=== PATIENT | female | born 1965 | race Caucasian/White ===

== ENCOUNTER 2019-09-28 19:19 | Emergency (ER) | payer BC, SELFPAY ==
[2019-09-28 19:24] VITALS: BP 114/66; PULSE 99; RESP 16; TEMP 36.7; O2SAT 100
[2019-09-28] MEDS: Amoxicillin 875/Clav. 125 TAB PO (19:51)
[2019-09-28] MEDS: Povidone-Iodine Soln. 118 ML BTL (19:52)
--- NOTE | 2019-09-28 20:17 | ED.GENADUL_ITS ---
Discharge Plan Disposition Patient Disposition: HOME Condition: Stable Discharge Details Chief Complaint: AnimalBite Clinical Impression: Dog bite, Hand laceration Primary Care Provider: Lazarus Gallardo ED Provider: Julia Portillo Home Meds and New Rx's Prescriptions: New amoxicillin-pot clavulanate [Augmentin] 875-125 mg tablet 1 tab PO BID Qty: 20 RF: 0 No Action albuterol sulfate [ProAir HFA] 8.5 GM HFA aerosol inhaler 1 - 2 puff Inhalation Q4H PRN RF: 0 fluticasone propionate [Flonase Allergy Relief] 9.9 ML spray,suspension 9.9 ml NS PRN RF: 0 Discharge Instructions Instructions: Animal Bite (ED), Laceration (ED) Additional Instructions: Leave initial dressing in place for 24 hours. Then begin gently washing with soap and water once or twice daily. Apply topical antibiotic ointment to the wound. Use antibiotics as prescribed by mouth for the next 10 days to prevent infections associated with dog bites. Tylenol for discomfort if needed. Icing to the area for the next 5 days as discussed, elevating the arm for swelling is helpful. Suture removal in 10 days. Observe for any signs of infection, specifically redness, swelling, pain or drainage. Return for concerns of infection, increasing pain, limited range of motion, numbness or tingling or weakness or for any alarming concerns sooner if needed. Medical Decision Making Is a 54-year-old patient presenting for dog bite to her left hand. Patient has 2 wounds to the hand 1 a half a centimeter puncture wound and the other approximately 2 cm irregular and curvilinear. There is subcutaneous involvement. No obvious muscular injury. No obvious vascular injury. No obvious tendon injury on exam. Patient is neurologically intact to sensation throughout the hand. Has no identifiable tendon injury. Full range of motion and strength intact with normal cap refill. Patient's tetanus is unknown therefore will be updated. Dog's rabies are up-to-date. Will provide initial dose of Augmentin in the emergency room and plan for 10-day prescription for Augmentin for prophylaxis of infection. Patient agrees with this plan of care. Patient did take Tylenol prior to arrival. We did discuss an x-ray, I offered x-ray given patient does have focal pain with palpation. Patient declines she does not feel she requires x-ray at this time would prefer to observe for any persistence of pain and return if needed for imaging. Patient's wound was cleaned with Betadine prep, 3 cc of lidocaine with good effect. Irrigated extensively with sterile saline. No wound debridement required. 3 sutures to loosely close the larger laceration. Good approximation of tissue. Patient tolerated procedure without difficulty. Dressing placed. Wound management and care discussed. Signs of infection discussed. The patient was stable and requested discharge. Prior to discharge, my usual and customary return precautions were reviewed with the patient - this included follow-up instructions and reasons to return to the Emergency Department if conditions worsens, does not improve as expected, or other new concerns arise. HPI General Date/Time Provider Initiated Documentation: 09/28/19 19:40 . HPI Narrative: This is a 54-year-old patient presenting to the emergency room for a dog bite which occurred prior to arrival. Patient is left-handed and presents with a left dorsal hand dog bite. Patient's 2 dogs were fighting and she broke up the fight ultimately being bit by her own dog. Patient's dogs are up-to-date on the rabies. Patient's tetanus is unknown. Patient reports pain at the site. Denies any concern of fracture. Some pain with range of motion. No obvious weakness or limitation to range of motion of hand. Denies numbness, tingling or weakness. Has taken Tylenol prior to arrival. No other acute complaints or concerns. No other sites of injury. Patient sustained 2 wounds on the dorsal aspect of the hand near the base of the thumb 1 noted to be a half a centimeter puncture the other a 2 cm laceration. Bleeding is controlled. Related Data Home Medications Medication Instructions Recorded Confirmed albuterol sulfate [Proair Hfa] 1 - 2 puff INHALATION Q4H PRN 02/11/17 09/28/19 inhaler fluticasone propionate [Flonase 9.9 ml NS PRN 02/11/17 09/28/19 Allergy Relief] amoxicillin-pot clavulanate 1 tab PO BID #20 tab 09/28/19 [Augmentin] Previous Rx's Medication Instructions Recorded amoxicillin-pot clavulanate 1 tab PO BID #20 tab 09/28/19 [Augmentin] Allergies Allergy/AdvReac Type Severity Reaction Status Date / Time codeine AdvReac Intermediate nausea Unverified 09/28/19 19:28 General Stated Complaint: AnimalBite ITZEL: 3 Review of Systems All systems reviewed & are unremarkable except as noted in HPI and below Constitutional Constitutional: Denies chills and Denies fever(s) Musculoskeletal Musculoskeletal: Denies limited range of motion, Denies muscle cramps, Denies muscle weakness, Denies numbness, Denies radiating pain into limb and Denies tin gling Integumentary/Breasts Skin/Breast: Reports wounds Neurologic Neurologic: Denies numbness and Denies tingling [facility] Social History Smoking/Tobacco Use Status: Current every day Alcohol Intake: current Alcohol Intake frequency: a few times a week Alcohol type: wine Drug use: Never Do you feel safe at home: Yes Do you feel safe in your relationship?: Yes Exam Narrative Exam Narrative: CONST: Healthy appearing patient, in no acute distress. Well hydrated. Alert and oriented. HENMT: Head nomocephalic, normal to inspection. Atraumatic. Hearing grossly normal. EYES: General normal appearance. Alignment normal. Eyelids normal. Conjunctiva normal. NECK: Normal visual inspection. FROM. CHEST: Normal insepection of the chest. RESP: Normal respiratory effort. Speaking full sentences. No cough. No audible wheezing. No retractions. CARDIO: No JVD. MUSCULOSKELETAL: Normal Gait. FROM of all extremities. Left arm, focal: No forearm pain, wrist pain with palpation. Inspection reveals a half a centimeter puncture near the base of the thumb on the left hand, 2 cm laceration curvilinear noted over the dorsal aspect of the proximal hand. Bleeding is controlled. Mild pain with palpation of the area. Patient has no obvious ligamentous injury. No pain with flexion or extension of all digits. Sensation intact throughout hand. No weakness. Cap refill normal. No palm involvement. SKIN: Normal. Dry. No rashes. NEURO: Alert and awake. Speech clear. PSYCH: Normal affect. Cooperative. Course Vital Signs Vital signs: Vital Signs Temperature 36.7 C 09/28/19 19:24 Pulse 99 H 09/28/19 19:24 Respiratory Rate 16 09/28/19 19:24 Blood Pressure 114/66 09/28/19 19:24 Pulse Oximetry 100 09/28/19 19:24 Temperature 36.7 C 09/28/19 19:24 Temperature Source Skin 09/28/19 19:24 Pulse 99 H 09/28/19 19:24 Respiratory Rate 16 09/28/19 19:24 Respiratory Effort 09/28/19 19:28 Blood Pressure 114/66 09/28/19 19:24 Blood Pressure Position Sitting 09/28/19 19:24 Pulse Oximetry 100 09/28/19 19:24 Oxygen Delivery Method Room Air 09/28/19 19:24 Oxygen Flow Rate 0 09/28/19 19:24 Pain Level 5 09/28/19 19:24 Comment 09/28/19 19:24 Procedures Laceration Laceration 1: Site: hand Side (If applicable): left Size (cm): 2 Description: other (Curvilinear somewhat irregular) Depth: simple, single layer Local Anesthetic: Lidocaine 1% Amount of anesthesia used (mL): 3 Pre-repair: wound explored, irrigated extensively and deep structures intact Skin layer closed with: other (prolene) Size (cm): 4-0 Number of sutures: 3
--- NOTE | 2019-09-30 15:31 | NUR.NOTE ---
Nursing Note: [employer] clerk called today stating that the fax machine is not working. It was decided that I would fax the report to Dr. Boswell, [facility] for him to follow up on. It was faxed. The medical record clerk will notify Dr. Boswell about this plan. Zulema Campa.
== END 2019-09-28 20:30 | disposition home or self-care (01) ==
PROVIDERS: Emergency Provider Physician Assistant; PCP Internal Medicine
DX: S61.452A Open bite of left hand, initial encounter (principal); W54.0XXA Bitten by dog, initial encounter
CPT/HCPCS: 12001; 90471

== ENCOUNTER 2019-10-08 08:04 | Emergency (ER) | payer BC, SELFPAY ==
[2019-10-08 08:24] VITALS: BP 98/59; PULSE 82; RESP 18; TEMP 36.7; O2SAT 98
--- NOTE | 2019-10-08 08:31 | ED.GENADUL_ITS ---
Discharge Plan Disposition Patient Disposition: HOME Condition: Good Discharge Details Chief Complaint: SutureRem Clinical Impression: Encounter for removal of sutures Primary Care Provider: Lazarus Gallardo ED Provider: Xiomara Stanley Home Meds and New Rx's Prescriptions: Continued albuterol sulfate [ProAir HFA] 8.5 GM HFA aerosol inhaler 1 - 2 puff Inhalation Q4H PRN RF: 0 fluticasone propionate [Flonase Allergy Relief] 9.9 ML spray,suspension 9.9 ml NS PRN RF: 0 amoxicillin-pot clavulanate [Augmentin] 875-125 mg tablet 1 tab PO BID Qty: 20 RF: 0 Discharge Instructions Instructions: Laceration (DC) Additional Instructions: Your wound appears to be healing well. Please continue infection prevention with gloves when appropriate as discussed. If you develop fever/chills, increased pain, spreading of the redness, purulent discharge or other new/worsening symptoms seek care urgently once again. Otherwise, please follow- up with primary care as needed. Referrals: Lazarus Gallardo MD [Primary Care Provider] - Discharge Data Discharge Date/Time-TO BE ENTERED AT DEPARTURE: 10/08/19 08:52 Medical Decision Making Wound appears to be healing well with no signs of infection. Wound edges are well approximated. Sutures appropriate to come out. #3 sutures were easily removed by myself. Is tolerated well by the patient. Patient I discussed continued wound care and continued infection prevention. She is given return precautions. We will follow-up with primary care as needed. All of her questions or concerns were addressed and she is in agreement this plan. HPI General Mode of arrival: ambulatory . Date/Time Provider Initiated Documentation: 10/08/19 08:31 . Limitations to Documentation: no limitations . Information obtained by: patient and RN notes reviewed . History of Present Illness 54 year old F presents to the emergency department with the chief complaint of suture removal left hand, described as mild, with intensity rated at 1. Quality is described as aching, and is localized to the left and upper extremity. Patient reports no radiation. Patient started experiencing this day(s) and it has been constant (improving). Immobilization improves symptom(s), Movement worsens symptoms . Patient notes no other symptoms.. Related Data Home Medications Medication Instructions Recorded Confirmed albuterol sulfate [ProAir HFA] 1 - 2 puff INHALATION Q4H PRN 02/11/17 10/08/19 inhaler fluticasone propionate [Flonase 9.9 ml NS PRN 02/11/17 10/08/19 Allergy Relief] amoxicillin-pot clavulanate 1 tab PO BID #20 tab 09/28/19 10/08/19 [Augmentin] Previous Rx's Medication Instructions Recorded amoxicillin-pot clavulanate 1 tab PO BID #20 tab 09/28/19 [Augmentin] Allergies Allergy/AdvReac Type Severity Reaction Status Date / Time codeine AdvReac Intermediate nausea Unverified 10/08/19 08:28 General Stated Complaint: SutureRem ITZEL: 4 Review of Systems Constitutional Constitutional: Reports as per HPI, Denies chills, Denies fever(s) and Denies weakness Musculoskeletal Musculoskeletal: Reports as per HPI and Denies tingling Integumentary/Breasts Skin/Breast: Reports as per HPI Neurologic Neurologic: Denies sensory deficit, Denies tingling and Denies weakness [facility] Social History Smoking/Tobacco Use Status: Current every day Tobacco Type: cigarettes Alcohol Intake: current Alcohol Intake frequency: a few times a week Alcohol type: wine Drug use: Never Substance use type: does not use Do you feel safe at home: Yes Do you feel safe in your relationship?: Yes Exam Const General: cooperative, healthy appearing, comfortable, no acute distress and well developed Nutritional Appearance: average body habitus and well nourished Orientation: alert and awake Resp Effort & Inspection: normal respiratory effort, able to speak in complete sentences and no respiratory distress Cardio Rate: regular rate Rhythm: regular rhythm Skin Trauma: laceration (left hand, healing well with no erythema, warmth, drainage) Neuro General: patient alert and patient awake Cognition: normal cognition Speech: speech normal Gait: normal gait Motor: muscle tone normal throughout Extrem Left upper extremity: normal to inspection (wound healing well), full ROM, normal capillary refill and hand Details: normal capillary refill, neuromotor exam normal, neurosensory exam normal, tendon exam normal, tenderness (mild over laceration) and laceration; no ecchymosis Psych Appearance: grossly normal and well kempt Mental Status: mental status grossly normal Speech and Movement: speech and movement normal Course Vital Signs Vital signs: Vital Signs Temperature 36.7 C 10/08/19 08:24 Pulse 82 10/08/19 08:24 Respiratory Rate 18 10/08/19 08:24 Blood Pressure 98/59 L 10/08/19 08:24 Pulse Oximetry 98 10/08/19 08:24 Temperature 36.7 C 10/08/19 08:24 Temperature Source Temporal Artery Scan 10/08/19 08:24 Pulse 82 10/08/19 08:24 Respiratory Rate 18 10/08/19 08:24 Respiratory Effort Non-Labored 10/08/19 08:27 Blood Pressure 98/59 L 10/08/19 08:24 Blood Pressure Position Sitting 10/08/19 08:24 Pulse Oximetry 98 10/08/19 08:24 Oxygen Delivery Method Room Air 10/08/19 08:24 Oxygen Flow Rate 0 10/08/19 08:24 Pain Level 1 10/08/19 08:24
== END 2019-10-08 08:52 | disposition home or self-care (01) ==
PROVIDERS: Emergency Provider Physician Assistant; PCP Internal Medicine
DX: S61.452D Open bite of left hand, subsequent encounter (principal); W54.0XXD Bitten by dog, subsequent encounter; Z48.02 Encounter for removal of sutures

== ENCOUNTER 2020-06-12 16:43 | Outpatient (REF) | payer BC, SELFPAY ==
--- NOTE | 2020-06-12 16:15 | PAPFT_PTH ---
PATIENT: Yvette Conte LOC: [facility] U#:[id number] AGE/SX: 55/F ROOM: RE06/12/[address]: Katharine Flood : 1965 BED: DIS: 06/12/2020 SPEC #: [id number] RECD: 06/13/20 12:39 STATUS: SHAHRIAR REDequan #: [id number] ISAEL: 06/12/20 16:[address]: Katharine Flood DEPT: [facility] Cytology RECD BY: Rabia Triplett ENTERED: 06/13/20 12:40 SP TYPE: PAPFT OTHR DR: Lazarus Gallardo Tissues: 1 - CX/ENDOCX FOR PAP SMEARS Procedures: PAP THIN PREP/UVM Screening HPV DNA PROBE Comments: [id number]
== END 2020-06-12 17:03 ==
LOC: NCHCN 16:43
PROVIDERS: PCP Internal Medicine; Visit Provider Nurse Practitioner Family
DX: Z00.00 Encounter for general adult medical examination without abnormal findings (principal); Z12.4 Encounter for screening for malignant neoplasm of cervix; R87.610 Atypical squamous cells of undetermined significance on cytologic smear of cervix (ASC-US)
CPT/HCPCS: 88142; 87624

== ENCOUNTER 2020-07-09 01:28 | Outpatient (CLI) | payer BC, SELFPAY ==
--- NOTE | 2020-07-09 | DI.MAMMO_ITS ---
EXAM: MAMMO SCREENING CLINICAL HISTORY: SCREENING, Z12.39 TECHNIQUE: Mammograms were interpreted according to the usual protocol including computer analysis w [employer] CAD system, tomosynthesis and C-view imaging. COMPARISON: 2002 through 2005 from [facility] FINDINGS: The breasts are composed of heterogeneously dense fibroglandular densities, Breast Density category C . No suspicious masses or suspicious microcalcifications are seen. Are several circumscribed nodules i n the right breast which appear unchanged 2006. There few scattered coarse calcifications. No skin thickening or abnormal axillary lymph nodes are seen. There has been no significant change from prior exams other than interval decrease in breast density. . IMPRESSION: BI-RADS Cat 2 - Benign Findings. Yearly screening mammography is recommended. Breast Density Category C, heterogeneously Dense. The mammogram demonstrates the patient's breast tissue is dense. Dense breast tissue is very common a nd is not abnormal but dense breast tissue can make it harder to find cancer on a mammogram. Also, de nse breast tissue may increase breast cancer risk. This information about the result of the mammogram report was provided to the patient to raise their awareness. Use this report when you speak with the patient about their risks for breast cancer, which includes their family history. At that time, you may recommend additional screening tests (Ultrasound or MRI) as they might be useful based on their r isk. A negative radiographic report should not delay biopsy if a dominant or clinically suspicious mass is present. Up to ten percent of cancers are not identified on mammography. A negative report may reinforce clinical impression. Adenosis and dense breasts may obscure an underlying neoplasm. False positive reports average 6 to 10%.
== END 2020-07-09 01:29 ==
LOC: DI 01:28
PROVIDERS: PCP Internal Medicine; Visit Provider Nurse Practitioner Family
DX: Z12.31 Encounter for screening mammogram for malignant neoplasm of breast (principal)
CPT/HCPCS: 77063; 77067

== ENCOUNTER 2020-12-10 08:24 | Emergency (ER) | payer BC, SELFPAY ==
[2020-12-10] VITALS (31 sets, daily range): BP systolic 95–152; BP diastolic 51–93; PULSE 77–106; RESP 11–31; TEMP 36–36.7; O2SAT 89–100
--- NOTE | 2020-12-10 08:25 | ED.GENADUL_ITS ---
Discharge Plan Disposition Patient Disposition: HOME Condition: Stable Discharge Details Clinical Impression: Ureterolithiasis Primary Care Provider: Lazarus Gallardo ED Provider: Cecile Mercado Home Meds and New Rx's Prescriptions: New tamsulosin [Flomax] 0.4 mg capsule 0.4 mg PO DAILY Qty: 10 RF: 0 oxycodone 5 mg tablet 5 mg PO Q6H PRN (Reason: pain) Qty: 7 RF: 0 Continued albuterol sulfate [ProAir HFA] 8.5 GM HFA aerosol inhaler 1 - 2 puff Inhalation Q4H PRN RF: 0 fluticasone propionate [Flonase Allergy Relief] 9.9 ML spray,suspension 9.9 ml NS PRN RF: 0 amoxicillin-pot clavulanate [Augmentin] 875-125 mg tablet 1 tab PO BID Qty: 20 RF: 0 Discharge Instructions Instructions: Kidney Stones (ED) Additional Instructions: Drink plenty of fluids and get plenty of rest. Alternate tylenol and motrin as needed and directed for pain. Take the oxycodone for pain not relieved with Tylenol or Motrin. Take the Zofran as needed and directed for nausea and vomiting. Take the Flomax daily as directed. Your prescriptions have been sent electronically to your pharmacy. Call the pharmacy to make sure your prescriptions are ready before pickup. Take the prescription as directed. Call the urologist today to schedule a follow up appointment for re-evaluation. Return immediately to the emergency department if you develop any worsening or new concerning symptoms such as fever, persistent vomiting, worsening pain or inability to urinate. Referrals: Darion Burger MD [ [facility]AFF PHYSICIAN] - Discharge Data Discharge Physician: Cecile Mercado Medical Decision Making 08 -- 55-year-old female with a history of section in the past presents with left lower quadrant abdominal pain and vomiting since last night. Patient appears significantly uncomfortable, crying and writhing in pain and holding her left lower quadrant. Blood pressure 98/62. Heart rate 106. Blood pressure 98/62. Her abdomen is soft and tender in the left lower quadrant. Difficult to obtain full history and exam due to patient's high level of discomfort. We will place an IV, obtain screening labs, urinalysis and plan for CT abdomen pelvis. We will give a dose of morphine and Zofran and reassess. 0900 -- Pt complaining continued pain before able to give meds. BP 127/77. She appears more comfortable but still complaining of pain prior to going to radiology. We will give a dose of fentanyl. 0920 -- Pt still c/o pain and nausea after return from radiology. She is moaning and writhing in pain. Blood pressure 119/69. Heart rate 80s. We will give a dose of Dilaudid IV and Phenergan IV. 0935 -- CT notes 4mm kidney stone with mild to moderate hydronephrosis. Will give a dose of Toradol. 1000 --patient appears much more comfortable and states her pain is improved. She has not yet given a urine sample. Will give another liter of fluid, plan for recheck of a lactate and urinalysis. 1130 --urinalysis notes blood but no evidence of infection. Repeat lactate normalized at 1.2. Patient reassessed and she feels much better. Nursing noted patient potentially passed a stone in her urine sample. Inspection of urine cup noted 3 mm white object but unclear if this is a stone. This was sent for a kidney stone analysis. Patient given dose of Flomax here. She feels good to go home. Prescription sent electronically to her pharmacy. She was placed on urology follow-up list. Medical Records Medical records reviewed: Yes I reviewed the patient's medical records. Imaging Data Radiologic Study: Radiologist's impression: CT ABDOMEN PELVIS CTA CLINICAL HISTORY: severe abdominal pain, r/o ischemia, AAA. TECHNIQUE: Imaging Protocol: Axial CT angiography was performed with multi- slice acquisition and multi-planar and/or 3D reconstructions. CONTRAST MATERIAL: Intravenous: Omnipaque 350 Contrast volume:100 mL Oral: No COMPARISON: No exams were available for comparison FINDINGS: ABDOMEN AND PELVIS: Abdomen: Celiac axis/mesenteric arteries: No evidence of occlusion or significant stenosis. Renal Arteries: No evidence of occlusion or significant stenosis. There is a single renal artery perfusing each kidney. Aorta: No evidence of occlusion or significant stenosis. No aneurysm or dissection. Mild atherosclerosis. Pelvis: Iliac Arteries: No evidence of occlusion or significant stenosis. Common Femoral Arteries: No evidence of occlusion or significant stenosis. ABDOMEN: Lung bases: There is scarring or atelectasis in the left lingula and right middle lobe. Liver: Normal density. No measurable mass. Portal, Superior Mesenteric, and Splenic Veins: Unremarkable. Gallbladder and Biliary Tract: No radiodense calculus or dilation. Pancreas: Normal density, no abnormal calcifications or inflammatory process. Spleen: Normal. Adrenals: No masses seen. Kidneys: Normal size, contour and axis. There is a 4 mm stone at the left UVJ causing lkrd-[id number]-[id number] hydronephrosis. No masses seen. Bowel: No obstruction or bowel wall thickening. There is a normal retrocecal appendix. Peritoneal Cavity: No ascites, collection or mesenteric inflammatory response. No free air. Lymph Nodes: Within normal limits. Bones: Unremarkable. Soft Tissues: Unremarkable. PELVIS: Bladder: Symmetric distention, no gross wall thickening. Reproductive Organs: Unremarkable as visualized. Lymph Nodes: Within normal limits. Bones: Within normal limits. IMPRESSION: 1. Normal CT Angiogram of the chest, abdomen and pelvis. 2. 4 mm left UVJ stone causing eakw-sr-dyzicxob hydronephrosis. 3. Results of this exam have been verbally communicated with provider. Lab Data Lab results reviewed: Yes I reviewed the patient's lab results. Labs: Laboratory Tests Range/Units 12/10/20 12/10/20 12/10/20 08:35 08:35 08:35 WBC (4.4-10.8) 10^3/uL 9.71 RBC (3.93-5.22) 10^6/uL 5.11 Hgb (11.2-15.7) g/dL 15.7 Hct (36.0-46.0) % 46.8 H MCV (80-95) fL 91.6 MCH (27.0-33.0) pg 30.7 MCHC (32.0-36.0) % 33.5 RDW (11.7-14.6) % 12.7 Plt Count (130-400) 10^3/uL 318 MPV (8.0-11.0) fL 9.6 Immature Gran % 0.5 Neutrophils % 74.7 Lymphocytes % 19.2 Monocytes % 4.8 Eosinophils % 0.4 Basophils % 0.4 Nucleated RBC % % 0 Absolute Neutrophils (1.2-6.7) 10^3/uL 7.25 H Absolute Lymphocytes (1.2-3.4) 10^3/uL 1.86 Absolute Monocytes (0.1-0.8) 10^3/uL 0.47 Absolute Eosinophils (0.0-0.7) 10^3/uL 0.04 Absolute Basophils (0.0-0.2) 10^3/uL 0.04 VBG Lactate (0.6-1.4) mmol/L 3.2 H* Sodium (136-145) mmol/L 140 Potassium (3.5-5.1) mmol/L 3.7 Chloride (98-107) mmol/L 104 Carbon Dioxide (21.0-32.0) mmol/L 22.8 Anion Gap (3-11) mmol/L 13.2 H BUN (7-18) mg/dL 11 Creatinine (0.55-1.02) mg/dL 0.9 Estimated GFR/1.73 m2 (mL/min/1.73m2) >= 60.00 Glucose (74-106) mg/dL 145 H Calcium (8.5-10.1) mg/dL 9.4 Total Bilirubin (0.2-1.0) mg/dL 0.4 AST (15-37) U/L 16 ALT (14-59) U/L 26 Alkaline Phosphatase (46-116) U/L 95 Total Protein (6.4-8.2) g/dL 7.6 Albumin (3.4-5.0) g/dL 3.9 Lipase (73-393) U/L 130 Urine Color (Yellow) Urine Clarity (Clear) Urine pH (5-8) Ur Specific [place] (1.005-1.025) Urine Protein (Negative) mg/dL Urine Ketones (Negative) mg/dL Urine Blood (Negative) Urine Nitrite (Negative) Urine Bilirubin (Negative) Urine Urobilinogen (Up TO 0.2) EU/dL Ur Leukocyte Esterase (Negative) Urine RBC (0-2) HPF Urine WBC (0-5) HPF Ur Epithelial Cells (Negative) HPF Urine Crystals (Negative) HPF Urine Bacteria (Negative) HPF Urine Casts (Negative) LPF Urine Mucus (Negative) Urine Other (Negative) Ur Culture Indicated? Urine Glucose (Negative) mg/dL Range/Units 12/10/20 12/10/20 10:55 11:00 WBC (4.4-10.8) 10^3/uL RBC (3.93-5.22) 10^6/uL Hgb (11.2-15.7) g/dL Hct (36.0-46.0) % MCV (80-95) fL MCH (27.0-33.0) pg MCHC (32.0-36.0) % RDW (11.7-14.6) % Plt Count (130-400) 10^3/uL MPV (8.0-11.0) fL Immature Gran % Neutrophils % Lymphocytes % Monocytes % Eosinophils % Basophils % Nucleated RBC % % Absolute Neutrophils (1.2-6.7) 10^3/uL Absolute Lymphocytes (1.2-3.4) 10^3/uL Absolute Monocytes (0.1-0.8) 10^3/uL Absolute Eosinophils (0.0-0.7) 10^3/uL Absolute Basophils (0.0-0.2) 10^3/uL VBG Lactate (0.6-1.4) mmol/L 1.2 Sodium (136-145) mmol/L Potassium (3.5-5.1) mmol/L Chloride (98-107) mmol/L Carbon Dioxide (21.0-32.0) mmol/L Anion Gap (3-11) mmol/L BUN (7-18) mg/dL Creatinine (0.55-1.02) mg/dL Estimated GFR/1.73 m2 (mL/min/1.73m2) Glucose (74-106) mg/dL Calcium (8.5-10.1) mg/dL Total Bilirubin (0.2-1.0) mg/dL AST (15-37) U/L ALT (14-59) U/L Alkaline Phosphatase (46-116) U/L Total Protein (6.4-8.2) g/dL Albumin (3.4-5.0) g/dL Lipase (73-393) U/L Urine Color (Yellow) Yellow Urine Clarity (Clear) Sl Cloudy Urine pH (5-8) 7.0 Ur Specific [place] (1.005-1.025) 1.015 Urine Protein (Negative) mg/dL Negative Urine Ketones (Negative) mg/dL Negative Urine Blood (Negative) Large H Urine Nitrite (Negative) Negative Urine Bilirubin (Negative) Negative Urine Urobilinogen (Up TO 0.2) EU/dL 0.2 Ur Leukocyte Esterase (Negative) Negative Urine RBC (0-2) HPF >50 H Urine WBC (0-5) HPF Negative Ur Epithelial Cells (Negative) HPF Negative Urine Crystals (Negative) HPF Negative Urine Bacteria (Negative) HPF Rare Urine Casts (Negative) LPF Negative Urine Mucus (Negative) Negative Urine Other (Negative) Negative Ur Culture Indicated? No Urine Glucose (Negative) mg/dL Negative HPI General Mode of arrival: ambulatory . Date/Time Provider Initiated Documentation: 12/10/20 08:24 . Limitations to Documentation: no limitations . Information obtained by: patient . HPI Narrative: Patient is a 55-year-old female who presents with lower abdominal pain and vomiting since last night. Patient states the pain started last night in her lower abdomen which she thought was around her bladder. She states she was able to sleep in the night and then the pain started again this morning and has been present for the past 3 hours. She states it is now mainly in her left lower quadrant. She admits to vomiting a few times which is mainly clear. She states she has had a bowel movement but denies any rectal bleeding or hematemesis. She has not taken any medication for pain. She states codeine causes nausea but she denies any known allergy to morphine and is unsure if she has ever had it. She denies any recent travel, new meds or new foods. Related Data Home Medications Medication Instructions Recorded Confirmed albuterol sulfate [ProAir HFA] 1 - 2 puff INHALATION Q4H PRN 02/11/17 10/08/19 inhaler fluticasone propionate [Flonase 9.9 ml NS PRN 02/11/17 10/08/19 Allergy Relief] amoxicillin-pot clavulanate 1 tab PO BID #20 tab 09/28/19 10/08/19 [Augmentin] oxycodone 5 mg PO Q6H PRN #7 tab 12/10/20 tamsulosin [Flomax] 0.4 mg PO DAILY #10 cap 12/10/20 Previous Rx's Medication Instructions Recorded amoxicillin-pot clavulanate 1 tab PO BID #20 tab 09/28/19 [Augmentin] oxycodone 5 mg PO Q6H PRN #7 tab 12/10/20 tamsulosin [Flomax] 0.4 mg PO DAILY #10 cap 12/10/20 Allergies Allergy/AdvReac Type Severity Reaction Status Date / Time codeine AdvReac Intermediate nausea Unverified 10/08/19 08:28 General ITZEL: 4 Review of Systems All systems reviewed & are unremarkable except as noted in HPI and below Constitutional Constitutional: Reports as per HPI, Denies chills and Denies fever(s) Eyes Eyes: Denies blurry vision ENT Ears, Nose, Mouth, and Throat: Denies dizziness, Denies sore throat and Denies throat swelling Cardiovascular Cardiovascular: Denies chest pain and Denies dyspnea Respiratory Respiratory: Denies cough and Denies dyspnea Gastrointestinal Gastrointestinal: Reports abdominal pain, Denies diarrhea and Reports vomiting Genitourinary Genitourinary: Denies hematuria and Denies dysuria Musculoskeletal Musculoskeletal: Denies back pain and Denies numbness Integumentary/Breasts Skin/Breast: Denies lesions and Denies rash Neurologic Neurologic: Denies dizziness, Denies localized weakness and Denies numbness Allergic/Immunologic Allergic/Immunologic: Denies throat swelling PFSH Medical History (Updated 12/10/20 @ 10:26 by Cecile Mercado DO) No significant past medical history Surgical History (Updated 12/10/20 @ 08:34 by Cecile Mercado DO) H/O section Social History Smoking/Tobacco Use Status: Current every day Tobacco Type: cigarettes Smoking risk assessment performed?: Yes Alcohol Intake: current Alcohol Intake frequency: a few times a week Alcohol type: wine Drug use: Never Substance use type: does not use Do you feel safe at home: Yes Do you feel safe in your relationship?: Yes Exam Const General: cooperative, healthy appearing, uncomfortable and acute distress severe (clutching her LLQ) Orientation: alert, awake and oriented x3 HENMT Head: normal to inspection Face and sinus: normal facial exam Eyes General: appearance normal, both eyes and all related structures EOM: EOM intact bilaterally Neck Neck: normal visual inspection and No submandibular swelling Lymphatic: no lymphadenopathy noted Chest Chest: normal inspection of the chest and no tenderness Resp Effort & Inspection: normal respiratory effort and able to speak in complete sentences Auscultation: clear to auscultation bilaterally Cardio Rate: regular rate Rhythm: regular rhythm GI Inspection: normal to inspection Palpation: soft, not firm, not rigid and tender in the LLQ Auscultation: hypoactive bowel sounds Skin General skin exam: no rashes or lesions noted Neuro General: patient alert, patient awake and patient oriented x3 Cognition: normal cognition Speech: speech normal Motor: muscle tone normal throughout Sensory Exam: no sensory deficits noted Extrem General: normal to inspection, full ROM, capillary refill normal, no calf tenderness bilaterally and no edema Psych Appearance: grossly normal Mental Status: mental status grossly normal Speech and Movement: speech and movement normal Affect: normal affect
--- NOTE | 2020-12-10 08:45 | DI.CT_ITS ---
Exam(s) CT ABDOMEN PELVIS CTA EXAM: CT ABDOMEN PELVIS CTA CLINICAL HISTORY: severe abdominal pain, r/o ischemia, AAA. TECHNIQUE: Imaging Protocol: Axial CT angiography was performed with multi-slice acquisition and m ulti-planar and/or 3D reconstructions. CONTRAST MATERIAL: Intravenous: Omnipaque 350 Contrast volume:100 mL Oral: No COMPARISON: No exams were available for comparison FINDINGS: ABDOMEN AND PELVIS: Abdomen: Celiac axis/mesenteric arteries: No evidence of occlusion or significant stenosis. Renal Arteries: No evidence of occlusion or significant stenosis. There is a single renal artery per fusing each kidney. Aorta: No evidence of occlusion or significant stenosis. No aneurysm or dissection. Mild atheroscl erosis. Pelvis: Iliac Arteries: No evidence of occlusion or significant stenosis. Common Femoral Arteries: No evidence of occlusion or significant stenosis. ABDOMEN: Lung bases: There is scarring or atelectasis in the left lingula and right middle lobe. Liver: Normal density. No measurable mass. Portal, Superior Mesenteric, and Splenic Veins: Unremarkable. Gallbladder and Biliary Tract: No radiodense calculus or dilation. Pancreas: Normal density, no abnormal calcifications or inflammatory process. Spleen: Normal. Adrenals: No masses seen. Kidneys: Normal size, contour and axis. There is a 4 mm stone at the left UVJ causing wqyp-og-wwofbvp e hydronephrosis. No masses seen. Bowel: No obstruction or bowel wall thickening. There is a normal retrocecal appendix. Peritoneal Cavity: No ascites, collection or mesenteric inflammatory response. No free air. Lymph Nodes: Within normal limits. Bones: Unremarkable. Soft Tissues: Unremarkable. PELVIS: Bladder: Symmetric distention, no gross wall thickening. Reproductive Organs: Unremarkable as visualized. Lymph Nodes: Within normal limits. Bones: Within normal limits. IMPRESSION: 1. Normal CT Angiogram of the chest, abdomen and pelvis. 2. 4 mm left UVJ stone causing dupb-my-zmnfolor hydronephrosis. 3. Results of this exam have been verbally communicated with provider. RADIATION DOSE DELIVERED: 521.5mGy.cm Total DLP 521.5mGy.cm Total DLP DATA REPOSITORY: All CT scans at this facility are submitted to the National Radiology Data Registry (NRDR) Dose Index Registry (DIR) with the [employer] ([employer]). RADIATION OPTIMIZATION: All CT scans at this facility use at least one of these dose optimization te chniques: automated exposure control; mA and/or kV adjustment per patient size (includes targeted exa ms where dose is matched to clinical indication); or iterative reconstruction.
[2020-12-10] MEDS: Ondansetron 4 MG/2 ML VIAL (08:53)
[2020-12-10] MEDS: MORPHine 4 MG/ML SYR (08:53)
[2020-12-10] MEDS: Normal Saline 1,000 ML 1000 ML IV ×2 (08:55→10:04)
[2020-12-10 08:58] LABS: Lactate 3.2 mmol/L (0.6-1.4)
[2020-12-10 09:00] LABS: Abs Immature Grans 0.05 10^3/uL (0.0-0.06); Absolute Basophil Count 0.04 10^3/uL (0.0-0.2); Absolute Eosinophil Count 0.04 10^3/uL (0.0-0.7); Absolute Lymphocyte Count 1.86 10^3/uL (1.2-3.4); Absolute Monocyte Count 0.47 10^3/uL (0.1-0.8); Absolute Neutrophil Count 7.25 10^3/uL (1.2-6.7); Basophils % 0.4; Eosinophils % 0.4; HCT 46.8 % (36.0-46.0); HGB 15.7 g/dL (11.2-15.7); Immature Grans % 0.5; Lymphocytes % 19.2; MCH 30.7 pg (27.0-33.0); MCHC 33.5 % (32.0-36.0); MCV 91.6 fL (80-95); MPV 9.6 fL (8.0-11.0); Monocytes % 4.8; Neutrophils % 74.7; Nucleated RBC 0 %; Platelet Count 318 10^3/uL (130-400); RBC 5.11 10^6/uL (3.93-5.22); RDW 12.7 % (11.7-14.6); WBC 9.71 10^3/uL (4.4-10.8)
[2020-12-10 09:08] LABS: ALT 26 U/L (14-59); AST 16 U/L (15-37); Albumin 3.9 g/dL (3.4-5.0); Alkaline Phosphatase 95 U/L (46-116); Anion Gap 13.2 mmol/L (3-11); BUN 11 mg/dL (7-18); Bilirubin, Total 0.4 mg/dL (0.2-1.0); CO2 22.8 mmol/L (21.0-32.0); CREATININE 0.9 mg/dL (0.55-1.02); Calcium 9.4 mg/dL (8.5-10.1); Chloride 104 mmol/L (98-107); Glucose 145 mg/dL (74-106); Lipase 130 U/L (73-393); Potassium 3.7 mmol/L (3.5-5.1); Sodium 140 mmol/L (136-145); Total Protein 7.6 g/dL (6.4-8.2)
[2020-12-10] MEDS: fentaNYL 100 MCG/2 ML VIAL 50 MCG IVP (09:10)
[2020-12-10] MEDS: Omnipaque 350 MG/ML 100 ML BTL IJ (09:21)
[2020-12-10] MEDS: Normal Saline - Diluent 50 ML VIAL IV (09:22)
[2020-12-10] MEDS: HYDROmorphone 2 MG/ML VIAL 1 MG IVP (09:35)
[2020-12-10] MEDS: Ketorolac 30 MG/ML VIAL IVP (09:42)
[2020-12-10 11:04] LABS: Bilirubin Negative (Negative); Blood Large (Negative); Clarity Sl Cloudy (Clear); Glucose Negative (Negative); Ketones Negative (Negative); Leukocyte Esterase Negative (Negative); Nitrite Negative (Negative); Specific Gravity 1.015 (1.005-1.025); Urobilinogen 0.2 EU/dL (Up TO 0.2)
[2020-12-10 11:09] LABS: Lactate 1.2 mmol/L (0.6-1.4)
[2020-12-10 11:13] LABS: Bacteria Rare HPF (Negative); C & S Indicated? No; Casts Negative LPF (Negative); Crystals Negative HPF (Negative); Epithelial Cells Negative HPF (Negative); Mucus Negative (Negative); Other Cells Negative (Negative); RBC >50 HPF (0-2); WBC Negative HPF (0-5)
[2020-12-10] MEDS: Tamsulosin 0.4 MG CAPCR PO (11:35)
[2020-12-10] MEDS: Ondansetron O.D.T. 4 MG TABEF, 3 TABS/BTL PO (11:48)
--- NOTE | 2020-12-10 17:35 | NUR.NOTE ---
referral faxed to ed
[2020-12-12 15:01] LABS: Source: Left Ureter
== END 2020-12-10 11:54 | disposition home or self-care (01) ==
PROVIDERS: Emergency Provider Physician Assistant; PCP Internal Medicine
DX: N13.2 Hydronephrosis with renal and ureteral calculous obstruction (principal); R11.2 Nausea with vomiting, unspecified
CPT/HCPCS: 36415; 80053; 83690; 96361; 96365; 96374; 96375; 99285; 74174; 81003; 81015; 82365; 83605; 85025; 99284; J1885; J2270; J2405; J3010; J3490

== ENCOUNTER 2020-12-13 07:04 | Emergency (ER) | payer BC, SELFPAY ==
[2020-12-13] VITALS (17 sets, daily range): BP systolic 103–119; BP diastolic 50–71; PULSE 67–91; RESP 18; TEMP 36; O2SAT 89–100
--- NOTE | 2020-12-13 07:42 | W.ED.GENAD ---
Discharge Plan Disposition Patient Disposition: HOME Condition: Improving Discharge Details Clinical Impression: Ureterolithiasis Primary Care Provider: Lazarus Gallardo ED Provider: Cecile Mercado Home Meds and New Rx's Prescriptions: Continued albuterol sulfate [ProAir HFA] 8.5 GM HFA aerosol inhaler 1 - 2 puff Inhalation Q4H PRN RF: 0 fluticasone propionate [Flonase Allergy Relief] 9.9 ML spray,suspension 9.9 ml NS PRN RF: 0 tamsulosin [Flomax] 0.4 mg capsule 0.4 mg PO DAILY Qty: 10 RF: 0 oxycodone 5 mg tablet 5 mg PO Q6H PRN (Reason: pain) Qty: 7 RF: 0 Discontinued amoxicillin-pot clavulanate [Augmentin] 875-125 mg tablet 1 tab PO BID Qty: 20 RF: 0 Discharge Instructions Instructions: Ureteral Stones (ED) Additional Instructions: Continue to take your Flomax daily as directed. Alternate tylenol and motrin as needed and directed for pain. Take the oxycodone for pain not relieved with Tylenol or Motrin. Take the Zofran as needed and directed for nausea and vomiting. If you have no relief of pain by Wednesday, do not eat anything after midnight on Wednesday night and call the urology office on Wednesday morning for potential stent placement that day with Dr. Burger. Return immediately to the emergency department if you develop any worsening or new concerning symptoms. Referrals: Darion Burger MD [ [facility] STAFF PHYSICIAN] - Discharge Data Discharge Date/Time-TO BE ENTERED AT DEPARTURE: 12/13/20 10:17 Discharge Physician: Cecile Mercado Medical Decision Making 55-year-old female diagnosed with left UVJ 4 mm kidney stone on an ED visit 3 days ago presents for return of left lower quadrant pain this morning. Patient appears uncomfortable. I evaluated patient in the ED 3 days ago and today she appears uncomfortable but in less distress as she was 3 days ago. She was given multiple IV narcotics without relief but eventually have relief with Toradol here in the ED 3 days ago. As she took Advil 2 hours ago, will give 15 mg of Toradol IV. Will obtain screening labs and urinalysis. Will hold on imaging as she just had a CT 3 days ago. Labs reviewed and unremarkable. Normal white blood cell count. Normal renal function. Urinalysis notes blood and likely contamination but no obvious signs of infection. Patient given a dose of Dilaudid for continued pain and had complete relief and is requesting to go home. Case was discussed with Dr. Burger - agrees with plan for holding on re-imaging at this time. As patient had return of pain today, he recommends Covid test today and if pain not relieved by Wednesday, to call the urology office on Wednesday morning for possible stent placement that day. Patient is agreeable with this plan. She has Flomax and oxycodone at home. Will give additional Zofran as needed. Patient placed on urology follow-up list. Usual and customary return precautions given prior to discharge. Medical Records Medical records reviewed: Yes I reviewed the patient's medical records. Lab Data Lab results reviewed: Yes I reviewed the patient's lab results. Labs: Laboratory Tests Range/Units 12/13/20 12/13/20 12/13/20 07:20 07:20 08:35 WBC (4.4-10.8) 10^3/uL 8.43 RBC (3.93-5.22) 10^6/uL 4.88 Hgb (11.2-15.7) g/dL 15.3 Hct (36.0-46.0) % 44.5 MCV (80-95) fL 91.2 MCH (27.0-33.0) pg 31.4 MCHC (32.0-36.0) % 34.4 RDW (11.7-14.6) % 12.8 Plt Count (130-400) 10^3/uL 319 MPV (8.0-11.0) fL 9.6 Immature Gran % 0.4 Neutrophils % 69.9 Lymphocytes % 22.7 Monocytes % 5.5 Eosinophils % 1.1 Basophils % 0.4 Nucleated RBC % % 0 Absolute Neutrophils (1.2-6.7) 10^3/uL 5.91 Absolute Lymphocytes (1.2-3.4) 10^3/uL 1.91 Absolute Monocytes (0.1-0.8) 10^3/uL 0.46 Absolute Eosinophils (0.0-0.7) 10^3/uL 0.09 Absolute Basophils (0.0-0.2) 10^3/uL 0.03 Sodium (136-145) mmol/L 140 Potassium (3.5-5.1) mmol/L 3.6 Chloride (98-107) mmol/L 104 Carbon Dioxide (21.0-32.0) mmol/L 24.5 Anion Gap (3-11) mmol/L 11.5 H BUN (7-18) mg/dL 7 Creatinine (0.55-1.02) mg/dL 0.9 Estimated GFR/1.73 m2 (mL/min/1.73m2) >= 60.00 Glucose (74-106) mg/dL 103 Calcium (8.5-10.1) mg/dL 9.6 Total Bilirubin (0.2-1.0) mg/dL 0.4 AST (15-37) U/L 20 ALT (14-59) U/L 25 Alkaline Phosphatase (46-116) U/L 91 Total Protein (6.4-8.2) g/dL 7.8 Albumin (3.4-5.0) g/dL 3.9 Lipase (73-393) U/L 107 Urine Color (Yellow) Yellow Urine Clarity (Clear) Clear Urine pH (5-8) 7.5 Ur Specific [place] (1.005-1.025) 1.025 Urine Protein (Negative) mg/dL Negative Urine Ketones (Negative) mg/dL Negative Urine Blood (Negative) Moderate H Urine Nitrite (Negative) Negative Urine Bilirubin (Negative) Negative Urine Urobilinogen (Up TO 0.2) EU/dL 0.2 Ur Leukocyte Esterase (Negative) Trace H Urine RBC (0-2) HPF 20-50 H Urine WBC (0-5) HPF 3-5 Ur Epithelial Cells (Negative) HPF Moderate Urine Crystals (Negative) HPF Negative Urine Bacteria (Negative) HPF Negative Urine Casts (Negative) LPF Negative Urine Mucus (Negative) Negative Ur Culture Indicated? No/Sq. Contamination Urine Glucose (Negative) mg/dL Negative COVID-19 Source SARS-CoV-2 (PCR) (Negative) Range/Units 12/13/20 10:00 WBC (4.4-10.8) 10^3/uL RBC (3.93-5.22) 10^6/uL Hgb (11.2-15.7) g/dL Hct (36.0-46.0) % MCV (80-95) fL MCH (27.0-33.0) pg MCHC (32.0-36.0) % RDW (11.7-14.6) % Plt Count (130-400) 10^3/uL MPV (8.0-11.0) fL Immature Gran % Neutrophils % Lymphocytes % Monocytes % Eosinophils % Basophils % Nucleated RBC % % Absolute Neutrophils (1.2-6.7) 10^3/uL Absolute Lymphocytes (1.2-3.4) 10^3/uL Absolute Monocytes (0.1-0.8) 10^3/uL Absolute Eosinophils (0.0-0.7) 10^3/uL Absolute Basophils (0.0-0.2) 10^3/uL Sodium (136-145) mmol/L Potassium (3.5-5.1) mmol/L Chloride (98-107) mmol/L Carbon Dioxide (21.0-32.0) mmol/L Anion Gap (3-11) mmol/L BUN (7-18) mg/dL Creatinine (0.55-1.02) mg/dL Estimated GFR/1.73 m2 (mL/min/1.73m2) Glucose (74-106) mg/dL Calcium (8.5-10.1) mg/dL Total Bilirubin (0.2-1.0) mg/dL AST (15-37) U/L ALT (14-59) U/L Alkaline Phosphatase (46-116) U/L Total Protein (6.4-8.2) g/dL Albumin (3.4-5.0) g/dL Lipase (73-393) U/L Urine Color (Yellow) Urine Clarity (Clear) Urine pH (5-8) Ur Specific [place] (1.005-1.025) Urine Protein (Negative) mg/dL Urine Ketones (Negative) mg/dL Urine Blood (Negative) Urine Nitrite (Negative) Urine Bilirubin (Negative) Urine Urobilinogen (Up TO 0.2) EU/dL Ur Leukocyte Esterase (Negative) Urine RBC (0-2) HPF Urine WBC (0-5) HPF Ur Epithelial Cells (Negative) HPF Urine Crystals (Negative) HPF Urine Bacteria (Negative) HPF Urine Casts (Negative) LPF Urine Mucus (Negative) Ur Culture Indicated? Urine Glucose (Negative) mg/dL COVID-19 Source Nasal/Nares SARS-CoV-2 (PCR) (Negative) Negative HPI General Mode of arrival: ambulatory. Date/Time Provider Initiated Documentation: 12/13/20 07:28. Limitations to Documentation: no limitations. Information obtained by: patient. HPI Narrative: Patient is a 55-year-old female seen in the emergency department 3 days ago and diagnosed with a left UVJ 4 mm stone and discharged home after symptoms improved presents for return of pain this morning. Patient states the pain is in the same location in the left lower quadrant. She admits to nausea but denies any vomiting. She denies any known fever. She states she has been able to urinate. She took 3 tabs of Advil 2 hours ago at home without relief. Patient states she called urology for follow-up and has an appointment in February. Related Data Home Medications Medication Instructions Recorded Confirmed albuterol sulfate [ProAir HFA] 1 - 2 puff INHALATION Q4H PRN 02/11/17 12/13/20 inhaler fluticasone propionate [Flonase 9.9 ml NS PRN 02/11/17 12/13/20 Allergy Relief] oxycodone 5 mg PO Q6H PRN #7 tab 12/10/20 12/13/20 tamsulosin [Flomax] 0.4 mg PO DAILY #10 cap 12/10/20 12/13/20 Previous Rx's Medication Instructions Recorded oxycodone 5 mg PO Q6H PRN #7 tab 12/10/20 tamsulosin [Flomax] 0.4 mg PO DAILY #10 cap 12/10/20 Allergies Allergy/AdvReac Type Severity Reaction Status Date / Time codeine AdvReac Intermediate nausea Unverified 12/13/20 07:37 General Stated Complaint: Abd Prob ITZEL: 3 Review of Systems All systems reviewed & are unremarkable except as noted in HPI and below Constitutional Constitutional: Reports as per HPI, Denies chills and Denies fever(s) Eyes Eyes: Denies blurry vision ENT Ears, Nose, Mouth, and Throat: Denies dizziness, Denies sore throat and Denies throat swelling Cardiovascular Cardiovascular: Denies chest pain and Denies dyspnea Respiratory Respiratory: Denies cough and Denies dyspnea Gastrointestinal Gastrointestinal: Reports abdominal pain, Denies diarrhea, Reports nausea and Denies vomiting Genitourinary Genitourinary: Denies hematuria and Denies dysuria Musculoskeletal Musculoskeletal: Denies back pain and Denies numbness Integumentary/Breasts Skin/Breast: Denies lesions and Denies rash Neurologic Neurologic: Denies dizziness, Denies localized weakness and Denies numbness Allergic/Immunologic Allergic/Immunologic: Denies throat swelling [facility] Medical History (Updated 12/13/20 @ 09:49 by Cecile Mercado DO) Kidney stones Surgical History (Updated 12/10/20 @ 08:34 by Cecile Mercado DO) H/O section Social History Smoking/Tobacco Use Status: Current every day Tobacco Type: cigarettes Smoking risk assessment performed?: Yes Alcohol Intake: current Alcohol Intake frequency: a few times a week Alcohol type: wine Drug use: Never Substance use type: does not use Do you feel safe at home: Yes Do you feel safe in your relationship?: Yes Exam Const General: cooperative, healthy appearing, uncomfortable, acute distress moderate and other (writhing around strether, clutching her LLQ) Orientation: alert, awake and oriented x3 HENMT Head: normal to inspection Face and sinus: normal facial exam Eyes General: appearance normal, both eyes and all related structures EOM: EOM intact bilaterally Neck Neck: normal visual inspection and No submandibular swelling Lymphatic: no lymphadenopathy noted Chest Chest: normal inspection of the chest and no tenderness Resp Effort & Inspection: normal respiratory effort and able to speak in complete sentences Auscultation: clear to auscultation bilaterally Cardio Rate: regular rate Rhythm: regular rhythm GI Inspection: normal to inspection Palpation: soft, not firm, not rigid and tender in the LLQ Auscultation: hypoactive bowel sounds Skin General skin exam: no rashes or lesions noted Neuro General: patient alert, patient awake and patient oriented x3 Cognition: normal cognition Speech: speech normal Motor: muscle tone normal throughout Sensory Exam: no sensory deficits noted Extrem General: normal to inspection, full ROM, capillary refill normal, no calf tenderness bilaterally and no edema Psych Appearance: grossly normal Mental Status: mental status grossly normal Speech and Movement: speech and movement normal Affect: normal affect Course Vital Signs Vital signs: Vital Signs Temperature 96.8 F L 12/13/20 07:13 Pulse 91 H 12/13/20 07:13 Respiratory Rate 18 12/13/20 07:13 Blood Pressure 111/66 12/13/20 07:13 Pulse Oximetry 100 12/13/20 07:13 Temperature 96.8 F L 12/13/20 07:13 Temperature Source Temporal Artery Scan 12/13/20 07:13 Pulse 91 H 12/13/20 07:13 Respiratory Rate 18 12/13/20 07:13 Respiratory Effort Non-Labored 12/13/20 07:35 Blood Pressure 111/66 12/13/20 07:13 Blood Pressure Position Sitting 12/13/20 07:13 Pulse Oximetry 100 12/13/20 07:13 Oxygen Delivery Method Room Air 12/13/20 07:13 Oxygen Flow Rate 0 12/13/20 07:13
[2020-12-13 07:47] LABS: Abs Immature Grans 0.03 10^3/uL (0.0-0.06); Absolute Basophil Count 0.03 10^3/uL (0.0-0.2); Absolute Eosinophil Count 0.09 10^3/uL (0.0-0.7); Absolute Lymphocyte Count 1.91 10^3/uL (1.2-3.4); Absolute Monocyte Count 0.46 10^3/uL (0.1-0.8); Absolute Neutrophil Count 5.91 10^3/uL (1.2-6.7); Basophils % 0.4; Eosinophils % 1.1; HCT 44.5 % (36.0-46.0); HGB 15.3 g/dL (11.2-15.7); Immature Grans % 0.4; Lymphocytes % 22.7; MCH 31.4 pg (27.0-33.0); MCHC 34.4 % (32.0-36.0); MCV 91.2 fL (80-95); MPV 9.6 fL (8.0-11.0); Monocytes % 5.5; Neutrophils % 69.9; Nucleated RBC 0 %; Platelet Count 319 10^3/uL (130-400); RBC 4.88 10^6/uL (3.93-5.22); RDW 12.8 % (11.7-14.6); RDW-SD 43.3 fL; WBC 8.43 10^3/uL (4.4-10.8)
[2020-12-13] MEDS: Normal Saline 1,000 ML 1000 ML IV (07:56)
[2020-12-13] MEDS: Ondansetron 4 MG/2 ML VIAL IVP (07:56)
[2020-12-13] MEDS: MORPHine 4 MG/ML SYR IVP (07:57)
[2020-12-13] MEDS: Ketorolac 15 MG/ML VIAL IVP (07:57)
[2020-12-13 08:33] LABS: ALT 25 U/L (14-59); AST 20 U/L (15-37); Albumin 3.9 g/dL (3.4-5.0); Alkaline Phosphatase 91 U/L (46-116); Anion Gap 11.5 mmol/L (3-11); BUN 7 mg/dL (7-18); Bilirubin, Total 0.4 mg/dL (0.2-1.0); CO2 24.5 mmol/L (21.0-32.0); CREATININE 0.9 mg/dL (0.55-1.02); Calcium 9.6 mg/dL (8.5-10.1); Chloride 104 mmol/L (98-107); Glucose 103 mg/dL (74-106); Lipase 107 U/L (73-393); Potassium 3.6 mmol/L (3.5-5.1); Sodium 140 mmol/L (136-145); Total Protein 7.8 g/dL (6.4-8.2)
[2020-12-13 08:41] LABS: Bilirubin Negative (Negative); Blood Moderate (Negative); Clarity Clear (Clear); Glucose Negative (Negative); Ketones Negative (Negative); Leukocyte Esterase Trace (Negative); Nitrite Negative (Negative); Specific Gravity 1.025 (1.005-1.025); Urobilinogen 0.2 EU/dL (Up TO 0.2); pH 7.5 (5-8)
[2020-12-13] MEDS: HYDROmorphone 2 MG/ML VIAL 1 MG IVP (08:48)
[2020-12-13 08:49] LABS: Bacteria Negative HPF (Negative); C & S Indicated? No/Sq. Contamination; Casts Negative LPF (Negative); Crystals Negative HPF (Negative); Epithelial Cells Moderate HPF (Negative); Mucus Negative (Negative); RBC 20-50 HPF (0-2)
[2020-12-13 10:17] LABS: Source Nasal/Nares
[2020-12-13] MEDS: Ondansetron O.D.T. 4 MG TABEF, 3 TABS/BTL PO (10:18)
[2020-12-13 14:14] LABS: COVID-19 PCR Negative (Negative)
== END 2020-12-13 10:17 | disposition home or self-care (01) ==
PROVIDERS: Emergency Provider Physician Assistant; PCP Internal Medicine
DX: N13.2 Hydronephrosis with renal and ureteral calculous obstruction (principal); R11.0 Nausea; Z87.442 Personal history of urinary calculi; Z20.822 Contact with and (suspected) exposure to COVID-19; Z03.818 Encounter for observation for suspected exposure to other biological agents ruled out
CPT/HCPCS: 36415; 80053; 83690; 87635; 96361; 96374; 96375; 99284; 81003; 81015; 85025; J1885; J2270; J2405

== ENCOUNTER 2022-11-04 09:27 | Outpatient (REF) | payer BC, SELFPAY ==
--- NOTE | 2022-11-04 08:15 | PAPFT_PTH ---
PATIENT: Yvette Conte LOC: [facility] U#:[id number] AGE/SX: 57/F ROOM: RE11/04/[address]: Katharine Flood : 1965 BED: DIS: 11/04/2022 SPEC #: [id number] RECD: 11/04/22 18:25 STATUS: SHAHRIAR CASAS #: [id number] ISAEL: 11/04/22 08:[address]: Katharine Flood DEPT: [facility] Cytology RECD BY: Rabia Triplett ENTERED: 11/04/22 18:25 SP TYPE: PAPFT OTHR DR: Lazarus Gallardo Tissues: 1 - CX/ENDOCX FOR PAP SMEARS Procedures: PAP THIN PREP/UVM Screening HPV DNA PROBE Comments: [id number]
[2022-11-04 14:22] LABS: HCT 45.8 % (36.0-46.0); HGB 15.7 g/dL (11.2-15.7); MCH 30.9 pg (27.0-33.0); MCHC 34.3 % (32.0-36.0); MCV 90 fL (80-95); Platelet Count 307 10^3/uL (130-400); RBC 5.08 10^6/uL (3.93-5.22); RDW 12.8 % (11.7-14.6); RDW-SD 42.4 fL
[2022-11-04 14:37] LABS: ALT 24 U/L (14-59); AST 18 U/L (15-37); Alkaline Phosphatase 104 U/L (46-116); Anion Gap 7.5 mmol/L (3-11); BUN 13 mg/dL (7-18); Bilirubin, Total 0.3 mg/dL (0.2-1.0); CO2 28.5 mmol/L (21.0-32.0); CREATININE 0.8 mg/dL (0.55-1.02); Calcium 9.7 mg/dL (8.5-10.1); Calculated LDL 168 mg/dL (<100); Chloride 105 mmol/L (98-107); Cholesterol 240 mg/dL (<200); Estimated GFR 85.89 (mL/min/1.73m2); Glucose 88 mg/dL (74-106); HDL Cholesterol 54 mg/dL (40-60); Potassium 4.8 mmol/L (3.5-5.1); Sodium 141 mmol/L (136-145); Total Protein 7.7 g/dL (6.4-8.2); Triglyceride 92 mg/dL (<150)
== END 2022-11-04 09:28 | disposition home or self-care (01) ==
LOC: NCHCN 09:27
PROVIDERS: PCP Internal Medicine; Visit Provider Nurse Practitioner Family
DX: Z00.00 Encounter for general adult medical examination without abnormal findings (principal); Z13.0 Encounter for screening for diseases of the blood and blood-forming organs and certain disorders involving the immune mechanism; Z13.228 Encounter for screening for other metabolic disorders; Z13.220 Encounter for screening for lipoid disorders; Z12.4 Encounter for screening for malignant neoplasm of cervix; Z11.51 Encounter for screening for human papillomavirus (HPV); Z01.419 Encounter for gynecological examination (general) (routine) without abnormal findings
CPT/HCPCS: 80053; 80061; 85027; 88142; 87624

== ENCOUNTER 2022-11-18 01:50 | Outpatient (CLI) | payer BC, SELFPAY ==
--- NOTE | 2022-11-18 13:45 | DI.MAMMO_ITS ---
Exam(s) MAMMO SCREENING EXAM: MAMMO SCREENING CLINICAL HISTORY: SCREENING, Z12.39 TECHNIQUE: Mammograms were interpreted according to the usual protocol including computer analysis w Within[employer] CAD system, tomosynthesis and C-view imaging. COMPARISON: 2020 FINDINGS: The breasts are composed of heterogeneously dense fibroglandular densities, Breast Density category C . No suspicious masses or suspicious microcalcifications are seen. Multiple circumscribed nodules are again noted in the right breast. Scattered coarse, benign calcifications are unchanged. No skin thickening or abnormal axillary lymph nodes are seen. There has been no significant change from prior exams. IMPRESSION: BI-RADS Category 2 - benign findings. Yearly screening mammography is recommended. Negative mammogram. Breast Density Category C, heterogeneously Dense. The mammogram demonstrates the patient's breast tissue is dense. Dense breast tissue is very common a nd is not abnormal but dense breast tissue can make it harder to find cancer on a mammogram. Also, de nse breast tissue may increase breast cancer risk. This information about the result of the mammogram report was provided to the patient to raise their awareness. Use this report when you speak with the patient about their risks for breast cancer, which includes their family history. At that time, you may recommend additional screening tests (Ultrasound or MRI) as they might be useful based on their r isk. A negative radiographic report should not delay biopsy if a dominant or clinically suspicious mass is present. Up to ten percent of cancers are not identified on mammography. A negative report may reinforce clinical impression. Adenosis and dense breasts may obscure an underlying neoplasm. False positive reports average 6 to 10%.
== END 2022-11-18 02:10 ==
LOC: DI 01:50
PROVIDERS: PCP Internal Medicine; Visit Provider Nurse Practitioner Family
DX: Z12.31 Encounter for screening mammogram for malignant neoplasm of breast (principal)
CPT/HCPCS: 77063; 77067

== ENCOUNTER 2023-11-11 14:52 | Outpatient (REF) | payer BC, SELFPAY ==
[2023-11-11 14:44] LABS: HCT 46.4 % (36.0-46.0); HGB 15.7 g/dL (11.2-15.7); MCH 30.7 pg (27.0-33.0); MCHC 33.8 % (32.0-36.0); MCV 91 fL (80-95); Platelet Count 337 10^3/uL (130-400); RBC 5.12 10^6/uL (3.93-5.22); RDW 12.9 % (11.7-14.6); RDW-SD 43.2 fL; WBC 7.27 10^3/uL (4.4-10.8)
[2023-11-11 15:07] LABS: ALT 32 U/L (14-59); AST 21 U/L (15-37); Albumin 3.9 g/dL (3.4-5.0); Alkaline Phosphatase 100 U/L (46-116); Anion Gap 9.5 mmol/L (3-11); BUN 12 mg/dL (7-18); Bilirubin, Total 0.24 mg/dL (0.2-1.0); CO2 25.5 mmol/L (21.0-32.0); CREATININE 0.8 mg/dL (0.55-1.02); Calcium 9.4 mg/dL (8.5-10.1); Calculated LDL 142 mg/dL (<100); Chloride 105 mmol/L (98-107); Cholesterol 232 mg/dL (<200); Estimated GFR 85.35 (mL/min/1.73m2); Glucose 117 mg/dL (74-106); HDL Cholesterol 54 mg/dL (40-60); Potassium 4.7 mmol/L (3.5-5.1); Sodium 140 mmol/L (136-145); Total Protein 7.3 g/dL (6.4-8.2); Triglyceride 182 mg/dL (<150)
== END 2023-11-11 14:53 | disposition home or self-care (01) ==
LOC: NCHCN 14:52
PROVIDERS: PCP Nurse Practitioner Family; Visit Provider Nurse Practitioner Family
DX: Z00.00 Encounter for general adult medical examination without abnormal findings (principal)
CPT/HCPCS: 80053; 80061; 85027

== ENCOUNTER 2024-10-12 02:44 | Outpatient (CLI) | payer BC, SELFPAY ==
--- NOTE | 2024-10-12 | DI.MAMMO_ITS ---
Exam(s) MAMMO SCREENING EXAM: MAMMO SCREENING CLINICAL HISTORY: SCREENING, Z12.31. TECHNIQUE: Bilateral full field digital CC and MLO mammographic images were obtained with 3D tomosyn thesis and utilizing computer aided detection (CAD). COMPARISON: Prior mammograms were reviewed. FINDINGS: There has been no significant change in the appearance and distribution of the fibroglandular tissue. No new left breast findings. Previously described benign-appearing nodular densities in the right breast are unchanged from 2020 a nd 2022 mammograms. There none available prior to 2020. Benign microcalcifications again noted in both breasts. There are no new spiculated masses nor new malignant appearing microcalcification groups. There is no significant architectural distortion nor skin thickening-retraction. IMPRESSION: Able benign-appearing findings. No radiographic evidence of malignancy. BI-RADS Category 2 - Benign Findings Breast Density - Category B - There are scattered areas of fibroglandular density. Breast density Category C or D implies that the patient has dense breast tissue. Dense breast tissue can make it harder to find cancer on a mammogram. Dense breast tissue is also associated with an incr eased risk of breast cancer. This information about the result of the mammogram report was provided to the patient to raise their awareness. Use this report when you speak with the patient about their risks for breast cancer, which includes their family history. At that time, you may recommend additional screening tests (Ultrasoun d or MRI) as these tests may add significant information. A negative radiographic report should not delay biopsy if a dominant or clinically suspicious mass is present. Up to ten percent of cancers are not identified on mammography. A negative report may reinforce clinical impression. Adenosis and dense breasts may obscure an underlying neoplasm. False positive reports average 6 to 10%. Patient will receive a letter notifying them of these results.
== END 2024-10-12 03:04 ==
LOC: DI 02:44
PROVIDERS: PCP Nurse Practitioner Family; Visit Provider Nurse Practitioner Family
DX: Z12.31 Encounter for screening mammogram for malignant neoplasm of breast (principal); R92.323 Mammographic fibroglandular density, bilateral breasts; D24.1 Benign neoplasm of right breast
CPT/HCPCS: 77063; 77067

== ENCOUNTER 2024-11-16 10:27 | Outpatient (REF) | payer BC, SELFPAY ==
[2024-11-16 15:01] LABS: HCT 45.7 % (36.0-46.0); HGB 15.4 g/dL (11.2-15.7); MCH 30.7 pg (27.0-33.0); MCHC 33.7 % (32.0-36.0); MCV 91 fL (80-95); MPV 10.1 fL (8.0-11.0); Platelet Count 304 10^3/uL (130-400); RBC 5.02 10^6/uL (3.93-5.22); RDW 12.9 % (11.7-14.6); RDW-SD 42.8 fL; WBC 5.14 10^3/uL (4.4-10.8)
[2024-11-16 15:42] LABS: ALT 28 U/L (14-59); AST 19 U/L (15-37); Alkaline Phosphatase 105 U/L (46-116); Anion Gap 10.8 mmol/L (3-11); Bilirubin, Total 0.4 mg/dL (0.2-1.0); CO2 26.2 mmol/L (21.0-32.0); Calcium 9.7 mg/dL (8.5-10.1); Chloride 103 mmol/L (98-107); Estimated GFR 99.57 (mL/min/1.73m2); Glucose 108 mg/dL (74-106); Potassium 4.5 mmol/L (3.5-5.1); Sodium 140 mmol/L (136-145); Total Protein 7.0 g/dL (6.4-8.2)
[2024-11-16 16:02] LABS: Albumin 3.9 g/dL (3.4-5.0); BUN 12 mg/dL (7-18)
== END 2024-11-16 10:28 | disposition home or self-care (01) ==
LOC: NCHCN 10:27
PROVIDERS: PCP Nurse Practitioner Family; Visit Provider Nurse Practitioner Family
DX: Z00.00 Encounter for general adult medical examination without abnormal findings (principal)
CPT/HCPCS: 80053; 85027